=== PATIENT | female | born 1975 | race Caucasian/White ===

== ENCOUNTER 2022-10-07 11:39 | Emergency (ER) | payer MEDICAID ==
[~2022-10-07] VITALS: Ht 165.1 cm; Wt 63.5 kg
--- NOTE | 2022-10-07 11:40 | NUR ---
RECEIVED PT 47 YRS FEMALE CAME BY JOYCE s/p FRANCK cormier one hr ago walking with stady gait no weekness or numbnesss
[2022-10-07] MEDS ORDERED: KETOROLAC TROMETHAMINE 15 MG/ML VIAL ONE (12:17)
[2022-10-07] MEDS ORDERED: ACETAMINOPHEN 325 MG TABLET ONE (12:17)
[2022-10-07] MEDS ORDERED: KETOROLAC TROMETHAMINE INJ 30 MG/ML VIAL IM ONE (12:30)
[2022-10-07] MEDS ORDERED: ACETAMINOPHEN 325 MG TABLET PO ONE (12:30)
--- NOTE | 2022-10-07 12:35 | NUR ---
NATALIE AT BEDSIDE [facility] [id number]
[2022-10-07] MEDS ORDERED: IBUP-1955 PO (13:02)
[2022-10-07] MEDS ORDERED: CYCL5TAB PO (13:02)
[2022-10-07 13:11] VITALS: BP 123/72
== END 2022-10-07 13:11 | disposition home or self-care (01) ==
LOC: ER 11:43
DX: S39.012A Strain of muscle, fascia and tendon of lower back, initial encounter (principal); S09.90XA Unspecified injury of head, initial encounter; V89.2XXA Person injured in unspecified motor-vehicle accident, traffic, initial encounter; Y93.89 Activity, other specified; Y92.89 Other specified places as the place of occurrence of the external cause; Y99.8 Other external cause status
CPT/HCPCS: 99283; 96372; J1885